=== PATIENT | female | born 1970 | race Caucasian/White ===

== ENCOUNTER 2019-10-22 14:00 | Emergency (ER) | payer BC ==
[~2019-10-22] VITALS: Ht 172.7 cm; Wt 116.1 kg
[~2019-10-22 14:00] MED LIST: METFORMIN HCL500 M1 ORAL; ZOLOFT25 MG ORAL
--- NOTE | 2019-10-22 14:07 | Emergency Room Report ---
History of Present Illness General Chief Complaint: Lower Extremity Injury Source: Patient (Aster Chowdhury N. P.ABuddy) Present Illness HPI 48-year-old female presents with left ankle injury just prior to arrival. She was walking on the street when she missed a uneven curb and felt a pop in her ankle. No head injury. She is not in pain at rest but cannot bear weight. (Aster Chowdhury N. P.A.) Allergies: Coded Allergies: No Known Allergies (Unverified , 10/22/19) Patient History Past Medical History: see triage record Reviewed Nursing Documentation: PMH: Agreed; PSxH: Agreed (Aster Chowdhury N. P.A.) Nursing Documentation-PMH Past Medical History: No Stated History Hx Diabetes: Yes History Of Psychiatric Problem: Yes (Aster Chowdhury N. P.A.) Review of Systems All Other Systems: negative except mentioned in HPI (Aster Chowdhury N. P.A.) Physical Exam Vital Signs Date Time Temp Pulse Resp B/P (MAP) Pulse Ox O2 Delivery O2 Flow Rate FiO2 10/22/19 13:45 98.8 77 16 117/80 (92) 98 Room Air General Appearance: normal inspection, well appearing, no apparent distress Head: normocephalic, atraumatic Respiratory: lungs clear, no respiratory distress Cardiovascular #1: normal peripheral pulses, regular rate, rhythm Cardiovascular #2: 2+ dorsalis pedis (R), 2+ dorsalis pedis (L) Musculoskeletal: other - Swelling and tenderness to the left lateral malleolus. No foot or delgadillo tenderness. Neurovascularly intact. (Aster Chowdhuyr N. P.A.) Procedures Splinting Splinting : Consent: Verbal Location: Left lower extremity Hand-Made Type: plaster Splint: poserior short Pre-Proc Neuro Vasc Exam: normal Post-Proc Neuro Vasc Exam: normal Patient Tolerated: Well Complications: None (Aster Chowdhury N. P.A.) Medical Decision Making PA Attestation Dr. Carroll is my supervising physician whom patient management and care has been discussed with. (Aster Chowdhury N. P.A.) Diagnostic Impression: Primary Impression: Ankle fracture Qualified Codes: S82.892A - Other fracture of left lower leg, initial encounter for closed fracture ER Course Pt. presents to the ED c/o ankle pain status post trauma Ddx considered but are not limited to fracture, dislocation, sprain. Vital signs: are WNL, pt. is afebrile H&PE are most consistent with ankle fracture ORDERS: Left ankle x-ray evident for distal fibula fracture ED INTERVENTIONS: Patient placed in a short leg splint and provided crutches. Advised to follow-up with orthopedics in 3 to 5 days. DISCHARGE: At this time pt. is stable for d/c to home. Will provide printed patient care instructions, and any necessary prescriptions. Care plan and follow up instructions have been discussed with the patient prior to discharge. (Aster Chowdhury N. P.A.) Other X-Ray Diagnostic Results Other X-Ray Diagnostic Results : X-Ray ordered: Left ankle # of Views/Limited Vs Complete: 2 View Indication: Swelling EP Interpretation: Yes PA Xray: Interpretation reviewed, by supervising MD, and agrees with findings. Interpretation: other - Lateral malleolus fracture Impression: Other - Lateral malleolus fracture (Aster Chowdhury N. P.A.) Last Vital Signs Date Time Temp Pulse Resp B/P (MAP) Pulse Ox O2 Delivery O2 Flow Rate FiO2 10/22/19 13:45 98.8 77 16 117/80 (92) 98 Room Air (Aster Chowdhury N. P.A.) Disposition: HOME, SELF-CARE Condition: Stable Aster Chowdhury. PMaureen Oct 22, 2019 14:06 Justyna Carroll M.D. Oct 31, 2019 06:25
--- NOTE | 2019-10-22 14:08 | NUR ---
ED Nurse Note: pt arrived with AP82 due left ankle pain s/p slip and fall outside house no KO, deformity noted
--- NOTE | 2019-10-22 14:22 | NUR ---
ED Nurse Note: xray taken
[2019-10-22 15:19] VITALS: BP 124/82
--- NOTE | 2019-10-22 15:20 | NUR ---
ER DISCHARGE NOTE: Patient is cleared to be discharged per ERMD, pt is aox4, on room air, with stable vital signs. pt was given d instructions, pt was able to verbalize understanding, pt id band removed. pt is able to ambulate with steady gait with splint and crutch. pt took all belongings.
--- NOTE | 2019-10-22 15:27 | Diagnostic Imaging Report ---
Indication: left ankle pain Comparison: None Findings: 3 views of the left ankle obtained. There is transverse fracture of the inferior aspect of the lateral malleolus. The fracture is nondisplaced but acute with associated soft tissue swelling. There is no malalignment. IMPRESSION: Acute lateral malleolus fracture
== END 2019-10-22 15:19 | disposition home or self-care (01) ==
LOC: EDBD 14:00 → EMR 15:03
DX: S82.892A Other fracture of left lower leg, initial encounter for closed fracture (principal); E11.9 Type 2 diabetes mellitus without complications; X58.XXXA Exposure to other specified factors, initial encounter; Y92.410 Unspecified street and highway as the place of occurrence of the external cause
CPT/HCPCS: 29515; 99283